=== PATIENT | male | born 1995 | race African-American/Black ===

== ENCOUNTER 2016-06-25 14:53 | Emergency (ER) | payer BC ==
[~2016-06-25] VITALS: Ht 180.3 cm; Wt 70.0 kg
[2016-06-25 14:58] VITALS: BP 131/87; PULSE 52; RESP 16; TEMP 97.7; O2SAT 100
[2016-06-25 15:01] VITALS: BP 131/87; PULSE 52; RESP 16; TEMP 97.7; O2SAT 100
--- NOTE | 2016-06-25 15:04 | PD ---
HPI Chief Complaint: Pain: Acute or Chronic Time Seen by Provider: 15:04 Travel History International Travel<30 days: No Contact w/Intl Traveler<30days: No Traveled to known affect area: No History of Present Illness HPI 21-year-old Afro-[place] male presents with left-sided headache and jaw pain. Patient states the pain seems to be related to his wisdom teeth, and has been worsening over the past 2 weeks. Using [id number] medications without any relief. Patient is currently visiting from [place] and has no local dental access. Patient hasn't appointment next Friday in [place] according to him. He denies fever, chills, or other symptoms. He has no difficulty swallowing or sore throat. Pain is 10 over 10 at this time. It is worse with chewing and yawning. He has no known drug allergies. [facility] Social History Alcohol Use: Yes Tobacco Use: No Substance Use: No Allergies-Medications (Allergen,Severity, Reaction): Coded Allergies: No Known Allergies (Unverified , 06/25/16) Reported Meds & Prescriptions Reported Meds & Active Scripts Active No Active Prescriptions or Reported Medications Review of Systems Except as stated in HPI: all other systems reviewed are Neg General / Constitutional: No: Fever Eyes: No: Visual changes HENT: Positive: Headaches, Dental Difficulties, Earache, No: Lightheadedness, Sore Throat, Rhinitis, Rhinorrhea, Congestion, Neck Stiffness, Neck Pain, Ear Discharge Cardiovascular: No: Chest Pain or Discomfort Respiratory: No: Shortness of Breath Gastrointestinal: No: Abdominal Pain Genitourinary: No: Dysuria Musculoskeletal: No: Pain Skin: No Rash Neurologic: No: Weakness Psychiatric: No: Depression Endocrine: No: Polydipsia Hematologic/Lymphatic: No: Easy Bruising Physical Exam Narrative GENERAL: Patient appears in moderate distress. SKIN: Warm and dry. Normal color. Normal turgor. No rash. HEAD: Atraumatic. Normocephalic. Patient has tenderness along the left upper and lower jawline without obvious abscess palpated. No TMJ tenderness appreciated. EYES: Pupils equal and round. No scleral icterus. No injection or drainage. ENT: No nasal bleeding or discharge. Mucous membranes pink and moist. Teeth appear in good repair without obvious caries or abscess. Pharynx is clear. Airway is patent. Uvula is midline. TMs are clear bilaterally. NECK: Trachea midline. Neck is supple and nontender. CARDIOVASCULAR: Regular rate and rhythm. RESPIRATORY: No accessory muscle use. Clear to auscultation. Breath sounds equal bilaterally. MUSCULOSKELETAL: Extremities without clubbing, cyanosis, or edema. No obvious deformities. NEUROLOGICAL: Awake and alert. No obvious cranial nerve deficits. Motor grossly within normal limits. Five out of 5 muscle strength in the arms and legs. Normal speech. PSYCHIATRIC: Appropriate mood and affect; insight and judgment normal. Data Data Last Documented VS Vital Signs Date Time Temp Pulse Resp B/P Pulse Ox O2 Delivery O2 Flow Rate FiO2 06/25/16 15:01 97.7 52 16 131/87 100 06/25/16 14:58 Room Air MDM Medical Decision Making Medical Screen Exam Complete: Yes Emergency Medical Condition: Yes Differential Diagnosis Dental pain. Dental caries. Early dental abscess. [place] tooth pain. Narrative Course Patient is medically stable at time of exam. Patient is given Toradol 60 mg IM as well as 875 mg amoxicillin by mouth. Patient was discharged home on amoxicillin 875 twice a day 10 days. Patient is given ibuprofen 800 mg 3 times daily with food #30. Patient is also given tramadol 50 mg one every 6 hours when necessary #12. Patient is to follow-up with his dentist as soon as possible. Patient can return if symptoms worsen if necessary. Diagnosis Primary Impression: Dental implant pain Qualified Code: T85.848A - Dental implant pain, initial encounter Referrals: Dentist Patient Instructions: Dental Abscess (ED), General Instructions Additional Instructions: Patient is medically stable at time of exam. Patient is given Toradol 60 mg IM as well as 875 mg amoxicillin by mouth. Patient was discharged home on amoxicillin 875 twice a day 10 days. Patient is given ibuprofen 800 mg 3 times daily with food #30. Patient is also given tramadol 50 mg one every 6 hours when necessary #12. Patient is to follow-up with his dentist as soon as possible. Patient can return if symptoms worsen if necessary. Med/Other Pt SpecificInfo: Prescription(s) given Scripts No Active Prescriptions or Reported Meds Disposition: DISCHARGE HOME Condition: Stable Martin Gallegos June 25, 2016 15:04
[2016-06-25] MEDS ORDERED: TRAM50TA PO (15:28)
[2016-06-25] MEDS ORDERED: IBUP800T23 PO (15:28)
[2016-06-25] MEDS ORDERED: AMOX875T PO (15:28)
[2016-06-25] MEDS ORDERED: KETOROLAC TROMETHAMINE 60 MG/2 ML (IM) VIAL IM ONE (15:30)
[2016-06-25] MEDS ORDERED: AMOXICILLIN 875 MG TAB PO ONE (15:30)
== END 2016-06-25 15:41 | disposition home or self-care (01) ==
LOC: PHEFT 14:53
DX: T85.848A Pain due to other internal prosthetic devices, implants and grafts, initial encounter (principal); R51 Headache
CPT/HCPCS: 96372; 99283; J1885